=== PATIENT | male | born 1965 | race Caucasian/White ===

== ENCOUNTER 2022-08-20 10:55 | Outpatient (CLI) | payer OTHER, SELFPAY ==
[2022-08-20 14:04] LABS: Chloride* 103 mmol/L (96-114); Potassium* 4.5 mmol/L (3.6-5.1); Sodium* 139 mmol/L (135-149)
[2022-08-20 14:07] LABS: Alanine Aminotransferase* 30 U/L (4-50); Blood Urea Nitrogen* 20 mg/dL (7-30); Carbon Dioxide* 32 mmol/L (20-32); Cholesterol* 159 mg/dL (90-199); Creatinine* 0.7 mg/dL (0.5-1.5); Estimated Glomerular Filt Rate 109 ml/min; Glucose* 86 mg/dL (60-115)
[2022-08-20 14:08] LABS: Calcium* 9.5 mg/dL (8.4-10.6); HDL Cholesterol* 37 mg/dL (>=40); LDL Cholesterol Calculated 66 mg/dL (<100); Triglycerides* 281 mg/dL (40-149)
== END 2022-08-20 10:56 | disposition home or self-care (01) ==
PROVIDERS: PCP Family Medicine; Visit Provider Family Medicine
DX: E78.5 Hyperlipidemia, unspecified (principal); I10 Essential (primary) hypertension
CPT/HCPCS: 80048; 80061; 84460

== ENCOUNTER 2023-11-27 09:44 | Outpatient (CLI) | payer OTHER, SELFPAY | END 2023-11-27 09:45 | disposition home or self-care (01) | PROVIDERS: PCP Family Medicine; Visit Provider Family Medicine | DX: I10 Essential (primary) hypertension (principal); E78.2 Mixed hyperlipidemia; K21.9 Gastro-esophageal reflux disease without esophagitis | CPT/HCPCS: 80048; 80061; 84460; 84550; 85025 ==

== ENCOUNTER 2024-12-23 08:29 | Outpatient (CLI) | payer BC, SELFPAY | END 2024-12-23 08:30 | disposition home or self-care (01) | LOC: NFLDREF 12-26 20:53 | PROVIDERS: PCP Internal Medicine; Referring Provider Internal Medicine; Visit Provider Internal Medicine | DX: E78.2 Mixed hyperlipidemia (principal); I10 Essential (primary) hypertension | CPT/HCPCS: 80053; 80061 ==